=== PATIENT | female | born 1950 | race Caucasian/White ===

== ENCOUNTER 2018-03-17 06:37 | Emergency (ER) | payer OTHER ==
[2018-03-17 06:59] VITALS: BP 175/109
--- NOTE | 2018-03-17 07:00 | EDPHY ---
H & P Stated Complaint: sore throat, RODRÍGUEZ, cough, nausea Time Seen by Provider: 03/17/18 06:59 - Personal History Current Tetanus/Diphtheria Vaccine: Yes - Medical/Surgical History Hx Asthma: No Hx Chronic Respiratory Disease: No Hx Diabetes: No Hx Cardiac Disease: No Hx Renal Disease: No Hx Cirrhosis: No Hx Alcoholism: No Hx HIV/AIDS: No Hx Splenectomy or Spleen Trauma: No Other PMH: HTN, high cholesterol, hypothyroid, appy, - Social History Smoking Status: Never smoked Constitutional: Initial Vital Signs Heart Rate 92 03/17/18 06:54 Respiratory Rate 20 03/17/18 06:54 Blood Pressure 175/109 H 03/17/18 06:54 O2 Sat (%) 95 03/17/18 06:54 O2 Delivery Mode Room Air Allergies/Adverse Reactions: No Known Allergies Allergy (Unverified 06/01/11 15:54) Home Medications: Medication Instructions Recorded ACCUPRIL 06/01/11 Lipitor 06/01/11 Norvasc 06/01/11 Azithromycin [Zithromax] 250 mg PO DAILY #6 tab 03/17/18 Levothyroxine 03/17/18 predniSONE 40 mg PO DAILY #10 tab 03/17/18 Medical Decision Making ED Course/Re-evaluation: CHIEF COMPLAINT: "I have a bunch of phlegm in my throat" HISTORY OF PRESENT ILLNESS: The patient is a 67 y/o female complaining of persistent phlegm in her throat and fatigue for the last 2 weeks. Her symptoms began shortly after working in the garden and she has been treating them as if they are allergies with OTC medications. She went to the [address] [place] [address] recently and had normal labwork. She saw her PCP last week for these symptoms, who also is treating as if they are allergies and recommended using Flonase, which she started 2 days ago. She did not notice any improvement with Mucinex. Last night she developed some nausea and mild lower back pain too. She denies fever, chills, sore throat, eye symptoms, cough, urinary symptoms, dyspnea, chest pain, vomiting, abdominal pain, diarrhea. REVIEW OF SYSTEMS: A 10 point review of systems was performed and is negative with the exception of the elements mentioned in the history of present illness. PHYSICAL EXAM: HR, BP, O2 Sat, RR. Temp noted General Appearance: Alert, well hydrated, appropriate, and non-toxic appearing. Head: Atraumatic without scalp tenderness or obvious injury Eyes: Pupils equal, round, reactive to light and accommodation, EOMI, no trauma , no injection. Nose: Atraumatic, no rhinorrhea, clear. Throat: Erythema and post-nasal drip, no exudates, no lesions, normal tonsils, mucus membranes moist. Neck: Supple nontender, no lymphadenopathy. Respiratory: No retractions, no distress, no wheezes, and no accessory muscle use. Lungs are clear to auscultation bilaterally. Cardiovascular: Regular rate and rhythm, no murmurs, rubs, or gallops. Good capillary refill all extremities. Gastrointestinal: Abdomen is soft, nontender, non-distended, no masses, no rebound, no guarding, no peritoneal signs. Musculoskeletal: Normal active ROM of all extremities, atraumatic. Neurological: Alert, appropriate, and interactive. The patient has non-focal cranial nerves, motor, sensory, and cerebellar exam. Skin: No rashes, good turgor, no nodules on palpation. Past medical history: HTN, high cholesterol, hypothyroidism Past surgical history: Appendectomy Family history: Noncontributory Social history: [place] in [place] DIFFERENTIAL DIAGNOSIS: The differential diagnosis for the patient's symptoms included but was not limited to seasonal allergies, pneumonia, urinary tract infection, viral syndrome, meningitis, and sepsis. MEDICAL DECISION MAKING: This is a 67 y/o female who presents with a 2-week history of "phlegm in my throat" unimproved after 2 days of allergy medications. She has pharyngeal erythema and post-nasal drip on exam, but generally appears well. She is afebrile and has clear lungs. This does not appear to be infectious. She will be discharged with scripts for prednisone, azithromycin and instructions to use Flonase and Jennifer OTC. Referred to survey superintendent for follow up as needed. She is comfortable with plan for discharge. Departure - Departure Disposition: Home, Routine, Self-Care Clinical Impression: Post-nasal drainage Condition: Good Instructions: Cetirizine (By mouth), Fluticasone (Into the nose), Postnasal Drip (DC) Additional Instructions: 1. Use Flonase as directed for the next several weeks-months. Two sprays in each nostril once daily. Effectiveness depends on regular use. 2. Take Jennifer (fexofenadine) daily as directed on the packaging during allergy season. 3. Take prednisone as prescribed. Be sure to complete the prescription. 4. Follow up with an survey superintendent for continued symptoms. You've been referred to Dr. Hines. Referrals: Emili Manrique MD [Primary Care Provider] - As per Instructions Floresita Hines MD [[facility] Primary Care Provider] - As per Instructions Prescriptions: Azithromycin [Zithromax] 250 mg PO DAILY #6 tab predniSONE 40 mg PO DAILY #10 tab Report Scribed for: Mickey Nath Report Scribed by: Olya Stone Date of Report: 03/17/18 Time of Report: 07:06
== END 2018-03-17 07:34 | disposition home or self-care (01) ==
DX: R09.82 Postnasal drip (principal); I10 Essential (primary) hypertension

== ENCOUNTER → 2019-04-04 | Outpatient (CLI) | payer OTHER | LOC: FIMAGING 11:09 | PROVIDERS: ATTEND Internal Medicine Hematology & Oncology | DX: J40 Bronchitis, not specified as acute or chronic (principal) ==